=== PATIENT | female | born 1940 | race Caucasian/White ===

== ENCOUNTER 2018-07-01 10:01 | Outpatient (CLI) | payer MEDICARE, OTHER ==
[2018-07-01 10:33] LABS: Hemoglobin 12.7 g/dL (12.0-16.0); Mean Corpuscular HGB CONC 32.8 g/dL (32.0-36.0); Mean Corpuscular Hemoglobin 32.7 pg (27.0-31.0); Mean Corpuscular Volume 99.8 fL (78.0-98.0); Mean Platelet Volume 8.5 fL (7.4-10.4); Platelet Count 183 thou/uL (130-400); RBC Distribution Width 12.5 % (11.5-14.5); Red Blood Cell (RBC) Count 3.87 mill/uL (4.20-5.40); White Blood Cell (WBC) Count 6.1 thou/uL (4.8-10.8)
--- NOTE | 2018-07-01 12:48 | EKG ---
Test Reason : Blood Pressure : / mmHG Vent. Rate : 068 BPM Atrial Rate : 068 BPM P-R Int : 164 ms QRS Dur : 062 ms QT Int : 400 ms P-R-T Axes : -18 024 -15 degrees QTc Int : 425 ms Normal sinus rhythm Normal ECG No previous ECGs available Confirmed by DR. Sasha BLUE (3) on 07/01/2018 12:48:13 PM Referred By: JOANNA Confirmed By:DR. Sasha BLUE
== END 2018-07-01 10:02 | disposition home or self-care (01) ==
LOC: LABBT 10:01
PROVIDERS: ATTEND Obstetrics & Gynecology
DX: Z01.818 Encounter for other preprocedural examination (principal); N85.00 Endometrial hyperplasia, unspecified
CPT/HCPCS: 85027; 86850; 86900; 86901; 93005; 93010

== ENCOUNTER 2018-07-07 07:53 | Day surgery (SDC) | payer MEDICARE, OTHER ==
[2018-07-01 10:21] VITALS: BMI 33.3
--- NOTE | 2018-07-07 02:20 | HP ---
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 HISTORY OF PRESENT ILLNESS: Ms. Delgadillo is a 78-year-old G4, P3 who presented to my office on May 25 with new-onset postmenopausal bleeding. The patient reports that she went to [facility] Emergency Department and was noted to have vaginal bleeding from the cervix. The patient was very surprised to hear that she has at the cervix and she said that she was told at age 29 that she had a complete hysterectomy for pelvic pain. The patient denies any menstrual bleeding since age 29. The patient had CT scan that reported a uterus with no ovary seen. The patient reports that this was the first time that she has had bleeding since her "hysterectomy." Patient reports that the bleeding was spontaneous and like a menses. The bleeding lasted for almost a week. After the bleeding stopped, she had no bleeding since. She has no family history of colon, ovarian, or breast cancers. She had an ultrasound done in the office with an approximately 8 mm endometrial stripes and otherwise normal appearing uterus with no ovary seen. The patient underwent endometrial biopsy with report of complex hyperplasia with atypia. On review of medications the patient has been taking oral Premarin for many years, and was only recently instructed to stop after our initial consult. The patient desires definitive management with hysterectomy. REVIEW OF SYSTEMS: Negative except as stated per the HPI. PAST MEDICAL HISTORY: COPD, hypercholesterolemia, hypertension, hyperthyroidism. MEDICATIONS: 1. Provera 10mg a day 2. Valsartan/HCTZ 320/12.5mg 3. Tiotropium [place] 18mcg 4. Temazepan 15mg 5. Metoprolol ER 100mg 6. Meloxicam 15mg 7. Levothyroxine 125mcg 8. Esomeprazole 20mg 9. Cetirizine 10mg 10. Budesonide 1mg/2ml 11. Atorvastatin 10-mg 12. Aspirin ALLERGIES 1. Penicillin 2. Sulfa PAST SURGICAL HISTORY: 1. Unclear gynecologic procedure at the age of 29, possible bilateral salpingo- oophorectomy. 2. Cholecystectomy. 3. Appendectomy. SOCIAL HISTORY: Former smoker, . FAMILY HISTORY: No first-degree relatives with significant medical problems. OBSTETRICAL HISTORY: G4, P3-0-1-3, with 3 previous vaginal deliveries. GYNECOLOGIC HISTORY: No history of STD or PID. The patient is not sexually active and has no gynecologic concerns with the exception of postmenopausal bleeding in April. PHYSICAL EXAMINATION: VITAL SIGNS: Height 5 feet 4 inches, weight 196 pounds, BMI 34, blood pressure 118/64, pulse 87, respiratory rate 18. GENERAL: No acute distress. HEENT: Grossly normal. ABDOMEN: Soft, nondistended, nontender, no guarding, no masses. GENITOURINARY: Normal external female genitalia, normal vaginal mucosa, normal cervix with no lesions or discharge. Uterus is not enlarged, nontender, no adnexal masses are palpable. No adnexal tenderness. Normal urethral meatus. RECTAL: No perianal skin lesions, fissures, or masses. SKIN: No rashes. MENTAL STATUS: Appropriate mood and affect. DIAGNOSTIC STUDY: Endometrial biopsy with complex hyperplasia with atypia. Pelvic ultrasound of the uterus 6 x 3 x 3 cm. Endometrial stripe 7.9 mm. Ovaries not seen on ultrasound. EKG on 07/01/2018, reports normal sinus rhythm , normal ECG. ASSESSMENT AND PLAN: Ms. Kaitlyn Delgadillo is a 78-year-old female with post- menopausal bleeding with endometrial biopsy significant for complex hyperplasia with atypia as previously thought she had a completed hysterectomy many years ago. We discussed her bleeding and hyperplasia are likely a result of years of unopposed oral estrogen replacement. Patient has been counseled and consented for total robotic-assisted laparoscopic hysterectomy, possible bilateral salpingo-oophorectomy, if ovaries are present at the time of surgery. The patient's questions have been answered to her satisfaction. She understands the risk and benefits are to include, but are not limited to bleeding, infection , damage to intraabdominal pelvic abdominal organs, inability to fully diagnose and treat all conditions at the time of surgery, and possible need for future medical and/or surgical management. The patient also aware of the risk of occult cancer that may not be diagnosed until the final pathology is reviewed. She understands and [facility] oncology are not available in our region and declined referral to [facility] oncology for surgical management. Patient's questions have been answered to her satisfaction. She desires to proceed with the procedure as listed above. ALTAGRACIA
[2018-07-07] MEDS ORDERED: Famotidine/PF 20 mg/2ml Vial ONE (08:02)
[2018-07-07] MEDS ORDERED: CeleCOXIB 100 MG CAP ONE (08:02)
[2018-07-07] MEDS ORDERED: CEFAZOLIN 2 GM/50 ML BAG ONE (08:02)
[2018-07-07] MEDS ORDERED: Gabapentin 300 MG CAP ONE (08:02)
[2018-07-07] MEDS ORDERED: Midazolam HCl 2 mg/2 ml Vial ONE (08:26)
[2018-07-07] MEDS ORDERED: Bupivacaine HCl 0.5%/Epinephrine 1:200,000/PF 30 ml Vial ONE (08:30)
[2018-07-07] MEDS ORDERED: Fentanyl 100 MCG/2 ML VIAL ONE (09:27)
== END 2018-07-07 10:20 | disposition home or self-care (01) ==
LOC: SDC 07:53
PROVIDERS: ATTEND Obstetrics & Gynecology
DX: N95.0 Postmenopausal bleeding (principal); N85.02 Endometrial intraepithelial neoplasia [EIN]; J44.9 Chronic obstructive pulmonary disease, unspecified; E78.00 Pure hypercholesterolemia, unspecified; E03.9 Hypothyroidism, unspecified; I10 Essential (primary) hypertension; Z53.09 Procedure and treatment not carried out because of other contraindication; Z87.891 Personal history of nicotine dependence; Z79.1 Long term (current) use of non-steroidal anti-inflammatories (NSAID); Z79.82 Long term (current) use of aspirin; Z79.899 Other long term (current) drug therapy; Z88.0 Allergy status to penicillin; Z88.2 Allergy status to sulfonamides
CPT/HCPCS: J0670; J2250; J3010; S0028

== ENCOUNTER 2018-07-27 08:53 | Day surgery (SDC) | payer MEDICARE, OTHER ==
[2018-07-24 08:39] VITALS: BMI 33.3
[2018-07-27] MEDS ORDERED: CeleCOXIB 100 MG CAP ONE (09:25)
[2018-07-27] MEDS ORDERED: Famotidine/PF 20 mg/2ml Vial ONE (09:25)
[2018-07-27] MEDS ORDERED: Gabapentin 300 MG CAP ONE (09:25)
[2018-07-27] MEDS ORDERED: Clindamycin/D5W 900 mg/50 ml Premix Bag ONE (09:55)
[2018-07-27] MEDS ORDERED: Levofloxacin 500 mg/D5W 100 ml Premix Bag ONE (09:55)
[2018-07-27] MEDS ORDERED: Bupivacaine HCl 0.5%/Epinephrine 1:200,000/PF 30 ml Vial ONE (10:11)
[2018-07-27] MEDS ORDERED: Fentanyl 250 MCG/5 ML VIAL ONE (10:25)
[2018-07-27] MEDS ORDERED: Ondansetron HCl/PF 4 MG/2 ML Vial IVP PRN (11:48)
[2018-07-27] MEDS ORDERED: Promethazine HCl 25 MG/ML VIAL SLOW IVP PRN (11:48)
[2018-07-27] MEDS ORDERED: Fentanyl 100 MCG/2 ML VIAL ONE (13:57)
[2018-07-27] MEDS ORDERED: PHENYLEPHRINE-NS 100 MCG/ML 10 ML SYRINGE ONE (14:19)
[2018-07-27] MEDS ORDERED: Ondansetron PF 4 MG/2 ML Vial ONE (14:19)
[2018-07-27] MEDS ORDERED: Dexamethasone 20 MG/5 ML VIAL ONE (14:19)
[2018-07-27] MEDS ORDERED: PROPOFOL 200 MG/20 ML VIAL ONE (14:19)
[2018-07-27] MEDS ORDERED: Glycopyrrolate 0.2 MG/ML 5 ML SYRINGE ONE (14:19)
[2018-07-27] MEDS ORDERED: ePHEDrine/0.9% NaCl/PF SYRINGE 50 mg/10 ml ONE (14:19)
[2018-07-27] MEDS ORDERED: Promethazine HCl 25 MG/ML VIAL IM PRN (15:03)
[2018-07-27] MEDS ORDERED: Bisacodyl 10 MG SUPP PR PRN (15:03)
[2018-07-27] MEDS ORDERED: HYDROcodone/Acetaminophen 5/325 mg Tablet PO PRN ×2 (15:03)
[2018-07-27] MEDS ORDERED: Zolpidem Tartrate 5 MG TAB PO PRN (15:03)
[2018-07-27] MEDS ORDERED: Acetaminophen 325 MG TAB PO PRN (15:03)
[2018-07-27] MEDS ORDERED: Simethicone Chewable 80 MG TAB PO PRN (15:03)
[2018-07-27] MEDS ORDERED: Ondansetron PF 4 MG/2 ML Vial IVP PRN (15:03)
[2018-07-27] MEDS ORDERED: Morphine 2 MG/ML SYRINGE SLOW IVP PRN (15:03)
[2018-07-27] MEDS ORDERED: diphenhydrAMINE 25 MG CAP PO PRN (15:03)
--- NOTE | 2018-07-27 18:39 | OP ---
DATE OF PROCEDURE: 07/27/2018 PREOPERATIVE DIAGNOSIS: Postmenopausal bleeding with endometrial hyperplasia. POSTOPERATIVE DIAGNOSIS: Postmenopausal bleeding with endometrial hyperplasia. PROCEDURES PERFORMED: 1. Robotic-assisted total laparoscopic hysterectomy. 2. Lysis of adhesions. NUTRITION EDUCATOR: Claire Ibrahim DO. ANESTHESIOLOGIST: Dr. Singleton. ANESTHESIA: GETA. INTRAOPERATIVE URINE OUTPUT: 40 mL. PREOPERATIVE URINE OUTPUT: 25 mL. COMPLICATIONS: None. INTRAOPERATIVE FINDINGS: 1. Small uterus with no abnormal characteristics. No ovaries or tubes status post bilateral salpingo-oophorectomy noted. 2. Adhesions of the omentum to the anterior abdominal wall and right lower quadrant with judaism of anatomy at the start of the case. 3. Surgical site hemostatic. PROCEDURE DETAILS: The patient was taken back to the OR with IV fluids running. When she was in the OR, she was placed in dorsal supine position, and general anesthesia was obtained. After the patient was asleep, she was placed in low dorsal lithotomy position, and the abdomen and vagina were prepped and draped in normal fashion for gynecological laparoscopy. A Riggs catheter was placed into the bladder, which drained approximately 25 mL of urine. A Kody syringe was attached to the end of the Riggs catheter tip to be used for bladder manipulation during the case. An operative speculum was placed into the vagina, and the cervix was identified and grasped at the anterior lip with a single-tooth tenaculum. The uterus has been sounded to 6 cm. The cervix was then dilated to allow for passage of the more narrow 6 cm Abiola AURELIANO manipulator tip. The 6 cm Abiola AURELIANO manipulator tip and 3 cm colpotomy cup were assembled on to the Abiola uterine manipulator handle and placed into the uterus and vagina in the usual fashion. The intrauterine balloon and intravaginal occluder balloons were inflated. The surgeon's gloves were changed, and attention was then turned to the laparoscopic portion of the case. Beginning at the supraumbilical fold, local anesthesia was injected underneath the skin. A 12 mm skin incision was made, and a Veress needle was placed through the incision. The abdomen was then insufflated without difficulty. The Veress needle was removed, and a 12 mm trocar was placed through this incision without difficulty. The laparoscope was then placed through this incision with immediate findings of midline and right lower quadrant omental adhesions to the anterior abdominal wall. Under direct visualization and in effort to avoid the adhesions, the right lower quadrant 8 mm trocar and the 11 mm right upper quadrant trocar were placed in similar fashion under direct visualization without difficulty. Next, the left lower quadrant 8 mm port was placed as well. With all 4 ports placed, the trocars were docked to the robotic arms, and the instruments were guided through the left and right lower quadrant trocars under direct visualization. Beginning in the midline below the umbilicus, the omental adhesions were taken down using fine dissection technique. After these were taken down, the adhesions at the right lower quadrant and right pelvic sidewall were taken down as well. With judaism of anatomy, the uterus was now well visualized. The uterus was very mobile, and there were no abnormal findings noted with the exception of absence of the bilateral fallopian tubes and ovaries. Beginning on the patient's left side, the left round ligament was cauterized, incised, and divided in the anterior and posterior leaf. The uterine arteries were then easily skeletonized as the uterine specimen was very small. Anteriorly, the bladder flap was created, and the bladder was dissected away from the planned colpotomy site. A significant amount of adipose tissue was noted during the dissection at the vesicouterine space. When small areas of bleeding were encountered in this adipose tissue, cauterization was used for hemostasis. In similar fashion, the round ligament was cauterized and divided on the contralateral side. The round ligament was taken down anteriorly and posteriorly to skeletonize the uterine arteries. The anterior leaf of the broad ligament was taken down, so that the bladder could be dissected away from the planned colpotomy site. The bladder was backfilled, and the bladder was noted to be well away from the colpotomy site. The uterine arteries were cauterized and transected bilaterally. The bladder was then further dissected away in layers and gentle dissection away from the cervix in the planned colpotomy site. After the bladder was dissected away and the blood supply had been cauterized and transected bilaterally to the uterus, the colpotomy was made circumferentially using monopolar scissors. This was completed without difficulty. After the uterine and cervix specimen was freed from the vagina, the specimen was retracted into the vagina and remained there for pneumoperitoneum. The surgical pedicle sites and the vaginal cuff were copiously irrigated, and any small areas of bleeding were controlled with Bovie cauterization. The vaginal cuff was closed with STRATAFIX suture in a running fashion and in 2 layers. After the vaginal cuff closure was complete, the pelvis was again copiously irrigated and suctioned dry. No areas of bleeding were noted. A layer of TISSEEL hemostatic agent was then placed over the vaginal cuff as well as over the exposed adipose tissue from the bladder flap dissection. Prior to placement of the TISSEEL, the intraabdominal pressure had been dropped to 6 mmHg with no bleeding noted. After the TISSEEL was placed, all the ports were removed. The gas was released from the abdomen. The counts were current, and the patient was taken out of Trendelenburg position. The supraumbilical port site was closed at the fascial layer with Vicryl suture. All 4 skin incisions were closed with Monocryl suture and dressed with Dermabond dressing. Job ID: [id number]
[2018-07-27] MEDS: Ipratropium Bromide 2.5 ml Neb NEB SCH ×2 (19:01→22:47)
[2018-07-27] MEDS: Ketorolac Tromethamine 30 MG/ML VIAL IVP SCH (19:16)
[2018-07-27] MEDS: Temazepam 15 MG CAP PO SCH ×2 (20:41→20:45)
[2018-07-27] MEDS ORDERED: Atorvastatin Calcium 20 MG TAB PO SCH (21:00)
[2018-07-27] MEDS ORDERED: Loratadine/Pseudoephedrine 10/240 mg Tablet PO SCH (21:00)
[2018-07-27] MEDS: Sodium Chloride 0.9% 1,000 ML IV SCH (22:46)
[2018-07-28] MEDS: Ketorolac Tromethamine 30 MG/ML VIAL IVP SCH ×2 (00:09→06:01)
[2018-07-28] MEDS: Sodium Chloride 0.9% 1,000 ML IV SCH (05:55)
[2018-07-28] MEDS ORDERED: Levothyroxine Sodium 125 MCG TAB PO SCH (06:00)
[2018-07-28] MEDS: Ipratropium Bromide 2.5 ml Neb NEB SCH (06:18)
[2018-07-28 07:05] LABS: Hemoglobin 11.5 g/dL (12.0-16.0); Mean Corpuscular HGB CONC 32.6 g/dL (32.0-36.0); Mean Corpuscular Hemoglobin 32.1 pg (27.0-31.0); Mean Corpuscular Volume 98.6 fL (78.0-98.0); Mean Platelet Volume 8.7 fL (7.4-10.4); Platelet Count 170 thou/uL (130-400); RBC Distribution Width 12.4 % (11.5-14.5); Red Blood Cell (RBC) Count 3.57 mill/uL (4.20-5.40); White Blood Cell (WBC) Count 7.9 thou/uL (4.8-10.8)
--- NOTE | 2018-07-28 08:13 | PDOC.EVN ---
Event Note - Event Note Event Note: Progress Note POD1 S: min pain, no concerns, light spotting noted last night, no vaginal bleeding, voiding without difficulty, no NV O: Vital Signs (24 hours) Temp Pulse Resp BP Pulse Ox 07/28/18 06:23 83 16 95 07/28/18 06:18 83 16 95 07/28/18 03:20 97.8 F 85 20 97/60 97 07/27/18 22:47 77 16 95 07/27/18 20:00 98.1 F 86 20 101/54 L 95 07/27/18 18:54 80 16 96 07/27/18 16:05 75 16 97/67 07/27/18 15:35 70 18 114/73 07/27/18 15:05 75 18 105/64 07/27/18 14:35 97.1 F L 68 16 114/60 98 GEN: sitting up in chair, NAD Lungs: nonlabored breathing Abd: ND, NTTP, inc CDI x 4 Ext: no edema or cords Laboratory Results - last 24 hr 07/27/18 07/28/18 09:55 06:48 WBC 7.9 RBC 3.57 L Hgb 11.5 L Hct 35.2 L MCV 98.6 H MCH 32.1 H MCHC 32.6 RDW 12.4 Plt Count 170 MPV 8.7 Blood Type O POSITIVE Antibody Screen NEGATIVE A/P: POD1 doing well, goals met, plan for DC this AM. Will FU path when available.
[2018-07-28 08:15] VITALS: BP 107/53; TEMP 97.7
[2018-07-28] MEDS ORDERED: Aspirin 81 mg Enteric Coated Tablet PO SCH (09:00)
[2018-07-28] MEDS ORDERED: Meloxicam 15 MG TAB PO SCH (09:00)
[2018-08-01] MEDS ORDERED: Ibuprofen 800 MG TAB PO SCH (22:00)
== END 2018-07-28 10:50 | disposition home or self-care (01) ==
LOC: SDC 08:53 → 3SE 13:47 → SDC 07-28 10:50
PROVIDERS: ATTEND Obstetrics & Gynecology
PROC: 0UT94ZZ Resection of Uterus, Percutaneous Endoscopic Approach (ICD-10-PCS; principal; 2018-07-27)
DX: C54.1 Malignant neoplasm of endometrium (principal); I10 Essential (primary) hypertension; J44.9 Chronic obstructive pulmonary disease, unspecified; E05.90 Thyrotoxicosis, unspecified without thyrotoxic crisis or storm; E78.00 Pure hypercholesterolemia, unspecified; Z79.899 Other long term (current) drug therapy; Z79.82 Long term (current) use of aspirin; Z88.0 Allergy status to penicillin; Z88.2 Allergy status to sulfonamides; Z87.891 Personal history of nicotine dependence
CPT/HCPCS: 36415; 85027; 86850; 86900; 86901; 88309; 94640; 96374; J0670; J1100; J1885; J1956; J2405; J2704; J3010; J3490; J7620; S0028

== ENCOUNTER 2019-05-19 09:11 | Emergency (ER) | payer MEDICARE, OTHER ==
[2019-05-19 09:48] LABS: #Eosinphils 0.1 thou/uL (0.0-0.7); #Lymphocytes 0.7 thou/uL (1.20-3.40); #Monocytes 0.6 thou/uL (0.11-0.59); #Neutrophils 6.6 thou/uL (1.40-6.50); %Eosinophils 0.9 % (0.0-10.0); %Lymphocytes 8.6 % (21.0-51.0); %Monocytes 7.4 % (0.0-10.0); %Neutrophils 83.2 % (42.0-75.0); Mean Corpuscular HGB CONC 33.5 g/dL (32.0-36.0); Mean Corpuscular Volume 92.6 fL (78.0-98.0); Mean Platelet Volume 8.4 fL (7.4-10.4); Platelet Count 156 thou/uL (130-400); RBC Distribution Width 13.3 % (11.5-14.5); Red Blood Cell (RBC) Count 4.51 mill/uL (4.20-5.40); White Blood Cell (WBC) Count 7.9 thou/uL (4.8-10.8)
[2019-05-19 10:13] LABS: ALT (SGPT) 11 U/L (8-55); AST (SGOT) 20 U/L (5-34); Alkaline Phosphatase 125 U/L (40-110); Anion Gap 13 mmol/L (10-20); BUN (Urea Nitrogen) 15 mg/dL (9.8-20.1); Bilirubin, Total 0.6 mg/dL (0.2-1.2); Calc. Creatinine Clearance 0 mL/min (70-130); Carbon Dioxide 21 mmol/L (23-31); Chloride 108 mmol/L (98-107); Estimated GFR-MDRD 60; Globulin 3.5 g/dL (2.4-3.5); Glucose 141 mg/dL (83-110); Potassium 3.6 mmol/L (3.5-5.1); Protein, Total 7.5 g/dL (6.0-8.3); Sodium 138 mmol/L (136-145)
[2019-05-19 10:24] LABS: Blood, Urine Negative (Negative); Nitrite Unable to Interpret (Negative)
[2019-05-19 10:25] LABS: Bilirubin Unable to Interpret (Negative); Glucose, Urine (Dipstick) Unable to Interpret mg/dL (Negative); Protein, Urine (Dipstick) Unable to Interpret mg/dL (Neg-Trace); Urobilinogen UNABLE TO INTERPRET mg/dL (Less than 2)
[2019-05-19 10:28] LABS: Bacteria/HPF 4+ HPF (None Seen)
[2019-05-19 10:31] LABS: Clarity Hazy (Clear); Leukocyte Trace Leu/uL (Negative)
--- NOTE | 2019-05-19 10:50 | RAD ---
EXAM: Chest one view: HISTORY: Syncope COMPARISON: None FINDINGS: Increased linear and interstitial markings with minimal biapical pleural thickening evidence for lunchroom supervisor christophe change. Heart size: Within normal limits. Lungs: Clear of acute process. No evidence for pneumonia, pleural effusion, acute edema, or pneumothorax, or other significant acute process. IMPRESSION: No significant acute intrathoracic disease. Evidence for minimal chronic change. Atherosclerosis of the aorta with ectasia.
== END 2019-05-19 11:29 | disposition home or self-care (01) ==
LOC: ERS 09:11
DX: N30.90 Cystitis, unspecified without hematuria (principal); E78.5 Hyperlipidemia, unspecified; E78.00 Pure hypercholesterolemia, unspecified; I10 Essential (primary) hypertension; E66.9 Obesity, unspecified; Z87.891 Personal history of nicotine dependence
CPT/HCPCS: 36415; 71045; 80053; 81003; 81015; 84484; 85025; 93005; 96360